=== PATIENT | male | born 1970 | race African-American/Black ===

== ENCOUNTER 2019-05-06 16:21 | Emergency (ER) | payer MEDICARE, MEDICAID ==
[~2019-05-06] VITALS: Ht 180.3 cm; Wt 114.3 kg
[2019-05-06] MEDS ORDERED: HYDROCODONE/APAP 5/325MG 1 EACH TABLET PO ONE (18:00)
[2019-05-06] MEDS ORDERED: ACETAMINOPHEN ES 500 MG TABLET ONE (18:18)
--- NOTE | 2019-05-06 18:22 | NUR ---
CALLED DIETARY FOR FOOD TRAY
[2019-05-06] MEDS ORDERED: ACETAMINOPHEN ES 500 MG TABLET PO ONE (18:30)
--- NOTE | 2019-05-06 19:31 | NUR ---
CALLED FOR BLS TRANSPORT, ETA [phone] MINS (APPROX 2029), TRIP #[id number]
[2019-05-06 21:03] VITALS: BP 133/81
== END 2019-05-06 21:03 | disposition home or self-care (01) ==
LOC: ER 16:35
DX: M17.12 Unilateral primary osteoarthritis, left knee (principal); M23.42 Loose body in knee, left knee; I11.0 Hypertensive heart disease with heart failure; I50.9 Heart failure, unspecified; E11.9 Type 2 diabetes mellitus without complications; E66.9 Obesity, unspecified; Z98.890 Other specified postprocedural states; Z95.0 Presence of cardiac pacemaker; Z86.73 Personal history of transient ischemic attack (TIA), and cerebral infarction without residual deficits
CPT/HCPCS: 73564-TC

== ENCOUNTER 2019-05-26 21:27 | Emergency (ER) | payer MEDICARE, MEDICAID ==
[~2019-05-26] VITALS: Ht 180.3 cm; Wt 114.3 kg
[2019-05-26] MEDS ORDERED: ACETAMINOPHEN ES 500 MG TABLET ONE (23:23)
[2019-05-26] MEDS ORDERED: ACETAMINOPHEN ES 500 MG TABLET PO ONE (23:30)
--- NOTE | 2019-05-26 23:30 | NUR ---
[facility] ETA 0100 [facility] [id number]
[2019-05-26 23:40] VITALS: BP 122/72
== END 2019-05-27 01:20 | disposition home or self-care (01) ==
LOC: ER 21:32
DX: M17.12 Unilateral primary osteoarthritis, left knee (principal); G89.29 Other chronic pain; M23.42 Loose body in knee, left knee; I11.0 Hypertensive heart disease with heart failure; I50.9 Heart failure, unspecified; E11.9 Type 2 diabetes mellitus without complications; Z95.0 Presence of cardiac pacemaker; Z86.73 Personal history of transient ischemic attack (TIA), and cerebral infarction without residual deficits

== ENCOUNTER 2020-07-09 07:55 | Emergency (ER) | payer BC, MEDICAID ==
[~2020-07-09] VITALS: Ht 180.3 cm; Wt 158.8 kg
--- NOTE | 2020-07-09 08:05 | NUR ---
PT SENT BY DR FARAH FOR CT ANGIOGRAM. PT DENIES ANY MEDICAL COMPLAINTS THIS TIME. PT AAOX4, RESPIRATIONS EVEN AND UNLABORED ON RA W/ NAD NOTED. PT CONNECTED TO THE INSPECTOR AND ADJUSTER [employer] HEAD AND POX.
--- NOTE | 2020-07-09 08:07 | NUR ---
paged dr feng. awaiting his call back
--- NOTE | 2020-07-09 08:17 | NUR ---
EKG AT BEDSIDE
--- NOTE | 2020-07-09 08:17 | NUR ---
XRAY AT BEDSIDE
--- NOTE | 2020-07-09 08:20 | NUR ---
[facility] CLINICAL NURSE SPECIALIST AT BEDSIDE FOR BLOOD DRAW
[2020-07-09 08:50] LABS: BASOPHILS # (AUTO) 0.1 /CMM (0.0-0.2); BASOPHILS % (AUTO) 1.2 % (0.0-2.0); EOSINOPHILS % (AUTO) 2.9 % (0.0-6.0); HEMATOCRIT 43 % (39-51); HEMOGLOBIN 13.7 g/dL (13.5-17.5); LYMPHOCYTES # (AUTO) 1.2 /CMM (0.8-4.8); LYMPHOCYTES % (AUTO) 22.7 % (20.0-44.0); MEAN CORPUSCULAR HGB CONC 32 g/dl (31.0-36.0); MEAN CORPUSCULAR VOLUME 85 fL (80-96); MONOCYTES # (AUTO) 0.6 /CMM (0.1-1.30); MONOCYTES % (AUTO) 12.4 % (2.0-12.0); NEUTROPHILS # (AUTO) 3.2 /CMM (1.8-8.9); NEUTROPHILS % (AUTO) 60.8 % (43.0-81.0); PLATELET COUNT (AUTO) 204 /CMM (150-450); RED BLOOD CELL COUNT(AUTO) 5.01 MIL/uL (4.5-6.0); WHITE BLOOD COUNT (AUTO) 5.2 K/uL (4.3-11.0)
[2020-07-09 08:58] LABS: CALCIUM, SERUM 8.7 mg/dL (8.5-10.1); CARBON DIOXIDE 21 mmol/L (21-32); CHLORIDE 105 mmol/L (98-107); CREATININE 1.3 mg/dL (0.6-1.3); GLUCOSE 106 mg/dL (74-106); SODIUM SERUM 137 mmol/L (136-145); UREA NITROGEN, BLOOD 13 mg/dL (7-18)
[2020-07-09] MEDS ORDERED: CARV25TA PO (09:00)
[2020-07-09] MEDS ORDERED: DICL100G16 TP (09:00)
[2020-07-09] MEDS ORDERED: SACU1TAB4 PO (09:00)
[2020-07-09] MEDS ORDERED: LORA-259 PO (09:00)
[2020-07-09] MEDS ORDERED: TOPI50TA24 PO (09:00)
[2020-07-09] MEDS ORDERED: ACET-2605 PO (09:00)
[2020-07-09] MEDS ORDERED: SPIR25TA PO (09:00)
[2020-07-09] MEDS ORDERED: HYDR-4384 PO (09:00)
[2020-07-09] MEDS ORDERED: HYDR-4076 PO (09:00)
[2020-07-09] MEDS ORDERED: TRAM50TA2 PO (09:00)
[2020-07-09] MEDS ORDERED: METF-440 PO (09:00)
[2020-07-09] MEDS ORDERED: APIX5TAB PO (09:00)
[2020-07-09] MEDS ORDERED: ONDA8TAB6 PO (09:00)
[2020-07-09] MEDS ORDERED: ZOLP10TA2 PO (09:00)
--- NOTE | 2020-07-09 09:02 | NUR ---
STEW SLATER PT CAME FROM [facility] ADDRESS:[id number] [place] [id number] FARAH
--- NOTE | 2020-07-09 09:16 | NUR ---
COVID SWAB COLLECTED AND SENT TO LAB
--- NOTE | 2020-07-09 09:55 | NUR ---
CALL FROM ANTWON,HEAD OPERATOR, WOULD LIKE TO TRANSFER PATIENT AND HIS MD WILL TALK TO DR PIERRE
--- NOTE | 2020-07-09 10:22 | NUR ---
RAPID COVID TEST=NEGATIVE
--- NOTE | 2020-07-09 10:24 | NUR ---
PAGED DR FARAH FOR A DR TO DR SPEARS
--- NOTE | 2020-07-09 10:49 | NUR ---
DR FARAH'S DIRECT LINE [phone]
--- NOTE | 2020-07-09 11:28 | NUR ---
CALL BACK FROM LISA,SHOES SALESPERSON,GOING TO [email or web address],ACCEPTED BY DR FARAH, REPORT TO BRADY SANTOS AT [phone]
--- NOTE | 2020-07-09 11:34 | NUR ---
PIERCE W/ BRADY, NURSING GREETER GUEST SERVICES FROM [facility], NURSE FOR THE PT AND BED WONT BE AVAILABLE UNTIL 1230. THEY WILL CALL BACK
--- NOTE | 2020-07-09 11:39 | NUR ---
[facility] ETA [phone]
--- NOTE | 2020-07-09 12:09 | NUR ---
INFORMED THAT HE IS GOING TO [facility] [place]
--- NOTE | 2020-07-09 13:08 | NUR ---
ATTEMPTED TO GIVE REPORT, NO ANSWER
--- NOTE | 2020-07-09 13:37 | NUR ---
ATTEMPTED TO GIVE REPORT TO SOCAL PAULINA, NO ANSWER
--- NOTE | 2020-07-09 13:53 | NUR ---
REPORT GIVEN TO DANIELLE HORN FOR MAGDA. ROOM TO BE DETERMINED UPON PT'S ARRIVAL
[2020-07-09 15:07] VITALS: BP 140/87
--- NOTE | 2020-07-09 15:09 | NUR ---
patient picked up by private ambulance going to [facility] in no distress.
== END 2020-07-09 15:09 | disposition short-term general hospital (02) ==
LOC: ER 08:05
DX: I42.9 Cardiomyopathy, unspecified (principal); I11.0 Hypertensive heart disease with heart failure; I50.9 Heart failure, unspecified; E11.9 Type 2 diabetes mellitus without complications; Z95.810 Presence of automatic (implantable) cardiac defibrillator; Z88.6 Allergy status to analgesic agent; Z79.01 Long term (current) use of anticoagulants; Z79.84 Long term (current) use of oral hypoglycemic drugs; Z79.899 Other long term (current) drug therapy; Z20.828 Contact with and (suspected) exposure to other viral communicable diseases
CPT/HCPCS: 36415; 71045-TC; 80048-TC; 84484-TC; 85025-TC; C9803-CS

== ENCOUNTER 2020-12-19 22:22 | Inpatient (IN) | payer BC, OTHER ==
[~2020-12-19] VITALS: Ht 180.3 cm; Wt 168.3 kg
[~2020-12-19 22:22] MED LIST: ACET-2605 PO; APIX5TAB PO; CARV25TA PO; DICL100G16 TP; HYDR-4076 PO; HYDR-4384 PO; LORA-259 PO; METF-440 PO; ONDA8TAB6 PO; SACU1TAB4 PO; SPIR25TA PO; TOPI50TA24 PO; TRAM50TA2 PO; ZOLP10TA2 PO
--- NOTE | 2020-12-19 22:31 | NUR ---
PT AAOX4. BIB FROM [facility]. PT C/O GENERALIZED WEAKNESS, SOB, AND MIDSTERNAL CP. PT STATING "IT FEELS LIKE IM RETAINING FLUID IN MY LUNGS" PT PLACED ON EARLY CHILDHOOD COORDINATOR AND PULSE OX. VSS. AWAITING FOR MD COLES AND ORDERS.
[2020-12-19] MEDS ORDERED: NITROGLYCERIN PACKET 1 GM PACKET TD ONE (23:00)
[2020-12-19] MEDS ORDERED: ASPIRIN 81 MG TAB.CHEW PO ONE (23:00)
[2020-12-19] MEDS ORDERED: NITROGLYCERIN PACKET 1 GM PACKET ONE (23:02)
[2020-12-19] MEDS ORDERED: ASPIRIN 81 MG TAB.CHEW ONE (23:02)
--- NOTE | 2020-12-19 23:22 | NUR ---
KITID SWABBED, SENT TO LAB.
[2020-12-19 23:31] LABS: BASOPHILS # (AUTO) 0.1 /CMM (0.0-0.2); BASOPHILS % (AUTO) 1.2 % (0.0-2.0); EOSINOPHILS % (AUTO) 3.2 % (0.0-6.0); HEMATOCRIT 40 % (39-51); HEMOGLOBIN 13.2 g/dL (13.5-17.5); LYMPHOCYTES # (AUTO) 1.4 /CMM (0.8-4.8); LYMPHOCYTES % (AUTO) 22.6 % (20.0-44.0); MEAN CORPUSCULAR HGB CONC 33 g/dl (31.0-36.0); MEAN CORPUSCULAR VOLUME 84 fL (80-96); MONOCYTES # (AUTO) 0.6 /CMM (0.1-1.30); MONOCYTES % (AUTO) 9.9 % (2.0-12.0); NEUTROPHILS # (AUTO) 3.9 /CMM (1.8-8.9); NEUTROPHILS % (AUTO) 63.1 % (43.0-81.0); PLATELET COUNT (AUTO) 212 /CMM (150-450); WHITE BLOOD COUNT (AUTO) 6.1 K/uL (4.3-11.0)
[2020-12-20] MEDS ORDERED: MELA3TAB41 PO (00:06)
[2020-12-20] MEDS ORDERED: FURO40TA5 PO (00:06)
[2020-12-20] MEDS ORDERED: AMIO200T5 PO (00:06)
[2020-12-20] MEDS ORDERED: ATOR10TA PO (00:06)
[2020-12-20 00:10] LABS: CALCIUM, SERUM 8.9 mg/dL (8.5-10.1); CARBON DIOXIDE 25 mmol/L (21-32); CHLORIDE 103 mmol/L (98-107); CREATININE 1.4 mg/dL (0.6-1.3); GLUCOSE 194 mg/dL (74-106); POTASSIUM 3.4 mmol/L (3.5-5.1); SODIUM SERUM 139 mmol/L (136-145); UREA NITROGEN, BLOOD 11 mg/dL (7-18)
[2020-12-20 00:23] LABS: ALANINE AMINOTRANSFERASE 33 U/L (12-78); ALBUMIN 3.6 g/dL (3.4-5.0); ALKALINE PHOSPHATASE 78 U/L (46-116); ASPARTATE AMINOTRANSFERASE 17 U/L (15-37); B-TYPE NATRIURETIC PEPTIDE 18 PG/ML (0-125); BILIRUBIN,DIRECT 0.1 mg/dL (0.0-0.2); BILIRUBIN,TOTAL 0.5 mg/dL (0.2-1.0); TOTAL PROTEIN, SERUM 6.9 g/dL (6.4-8.2)
--- NOTE | 2020-12-20 01:51 | NUR ---
PT RESTING COMFORTABLY. VSS.
--- NOTE | 2020-12-20 04:28 | NUR ---
PT IN BED, AWAKE, VSS
--- NOTE | 2020-12-20 07:11 | NUR ---
PT ASLEEP IN BED, VSS.
--- NOTE | 2020-12-20 09:00 | NUR ---
PT EATING BREAKFAST. DENIES ANY DISCOMFORT AT THIS TIME. WILL CONT TO MONITOR.
--- NOTE | 2020-12-20 11:10 | NUR ---
PT SITTING UP. DENIES CP, SOB, DIZZINESS, N/V AT THIS TIME. WILL CONT TO MONITOR.
--- NOTE | 2020-12-20 11:22 | NUR ---
BED 115
--- NOTE | 2020-12-20 11:35 | NUR ---
REPORT GIVEN TO DANIELLE MARTINES FOR MAGDA.
--- NOTE | 2020-12-20 11:55 | NUR ---
PATIENT RECIEVED FROM ER IN STABLE CONDITION BROUGHT IN WITH [facility]. REPORT RECIEVED FROM JASMINE. SKIN INTACT. VITALS WITHIN NORMAL LIMITS. RIGHT HAND IV 18 AKIN INTACT AND PATENT. WILL CONTINUE TO MONITOR AND PROVIDE CARE THROUGHOUT SHIFT.
--- NOTE | 2020-12-20 12:34 | NUR ---
left message to re; adm orders waiting for returning call back
--- NOTE | 2020-12-20 13:00 | NUR ---
is attending physician ,called and stated that will be calling in at 1400
[2020-12-20] MEDS: PANTOPRAZOLE 40 MG TABLET.DR PO SCH (14:55)
[2020-12-20] MEDS ORDERED: ENTRESTO PO SCH (17:00)
[2020-12-20] MEDS ORDERED: LORAZEPAM 1 MG TABLET PO PRN (17:00)
[2020-12-20] MEDS ORDERED: HOME MED MISCELLANEOUS XX SCH (17:00)
[2020-12-20] MEDS ORDERED: HYDROCODONE/APAP 5/325MG TABLET PO PRN (17:00)
[2020-12-20] MEDS ORDERED: ONDANSETRON 4 MG TAB.RAPDIS PO PRN (17:00)
[2020-12-20] MEDS ORDERED: TRAMADOL HCL 50 MG TABLET PO PRN (17:00)
[2020-12-20] MEDS: METFORMIN 500 MG TABLET PO SCH (17:41)
[2020-12-20] MEDS: APIXABAN 5 MG TABLET PO SCH (17:45)
--- NOTE | 2020-12-20 19:01 | NUR ---
RN CLOSING NOTE PATIENT IN BED WITH NO COMPLAINTS OF PAIN RESTING IN SEMI-FOWLERS POSITION. PATIENT ON ROOM AIR WITH COMPLAINTS OF SOB OR CHEST PAIN AT THE MOMENT. IV ACCESS MAINTAINED INTACT, SECURED AND FLUSHING WELL. SAFETY MEASURES IMPLEMENTED, BED LOCKED IN LOWEST POSITION, SIDE RAILS UP, CALL LIGHT WITHIN REACH. WILL ENDORSE CONTINUATION OF CARE TO UPCOMING SHIFT.
[2020-12-20 20:00] VITALS: BP 113/69
[2020-12-20] MEDS: CARVEDILOL 12.5 MG TABLET PO SCH (21:24)
[2020-12-20] MEDS ORDERED: TOPIRAMATE 25 MG TABLET PO SCH (22:00)
[2020-12-20] MEDS ORDERED: ATORVASTATIN 10 MG TABLET PO SCH (22:00)
[2020-12-20] MEDS ORDERED: ZOLPIDEM TARTRATE 10 MG TABLET PO PRN (22:00)
[2020-12-20] MEDS ORDERED: ACETAMINOPHEN ES 500 MG TABLET PO PRN (22:00)
[2020-12-21] VITALS: BP 116/70
[2020-12-21 04:00] VITALS: BP 119/78
--- NOTE | 2020-12-21 07:25 | NUR ---
RN OPENING NOTE PATIENT IN BED WITH NO COMPLAINTS OF PAIN RESTING IN SEMI-FOWLERS POSITION. PATIENT ON ROOM AIR WITH COMPLAINTS OF SOB OR CHEST PAIN AT THE MOMENT. IV ACCESS MAINTAINED INTACT, SECURED AND FLUSHING WELL. SAFETY MEASURES IMPLEMENTED, BED LOCKED IN LOWEST POSITION, SIDE RAILS UP, CALL LIGHT WITHIN REACH. WILL CONTINUE TO MONITOR AND PROVIDE CARE THROUGHOUT SHIFT.
[2020-12-21] MEDS ORDERED: PANTOPRAZOLE 40 MG TABLET.DR PO SCH (07:30)
[2020-12-21 08:00] VITALS: BP 127/78
[2020-12-21] MEDS ORDERED: LOSARTAN POTASSIUM 50 MG TABLET PO SCH (09:00)
[2020-12-21] MEDS ORDERED: AMIODARONE HCL 200 MG TABLET PO SCH (09:00)
[2020-12-21] MEDS ORDERED: SPIRONOLACTONE 25 MG TABLET PO SCH (09:00)
[2020-12-21] MEDS ORDERED: FUROSEMIDE 40 MG TABLET PO SCH (09:00)
[2020-12-21] MEDS: PANTOPRAZOLE 40 MG TABLET.DR PO SCH (09:11)
[2020-12-21] MEDS: METFORMIN 500 MG TABLET PO SCH ×2 (09:18→16:42)
[2020-12-21] MEDS: CARVEDILOL 12.5 MG TABLET PO SCH ×2 (09:19→16:42)
[2020-12-21] MEDS: APIXABAN 5 MG TABLET PO SCH ×2 (09:29→16:43)
[2020-12-21 12:00] VITALS: BP 122/73
[2020-12-21 16:00] VITALS: BP 113/60
--- NOTE | 2020-12-21 18:47 | NUR ---
RN CLOSING NOTE PATIENT IN BED WITH NO COMPLAINTS OF PAIN RESTING IN SEMI-FOWLERS POSITION. PATIENT ON ROOM AIR WITH COMPLAINTS OF SOB OR CHEST PAIN AT THE MOMENT. IV ACCESS MAINTAINED INTACT, SECURED AND FLUSHING WELL. SAFETY MEASURES IMPLEMENTED, BED LOCKED IN LOWEST POSITION, SIDE RAILS UP, CALL LIGHT WITHIN REACH. DISCHARGE PAPERWORK READY AND AVAILABLE FOR TRANSPORT. CURRENTLY AWAITING AMBULANCE FOR PICKUP WITH ETA OF 8:00 PM. WILL ENDORSE CONTINUATION OF CARE TO UPCOMING SHIFT.
[2020-12-21 20:00] VITALS: BP 119/79
--- NOTE | 2020-12-21 21:15 | NUR ---
TELE-1/HIGHWAY MAINTENANCE SUPERVISOR PT IV DC'D CATH TIP INTACT. SITE BENIGN. REPORT TO TRANSPORT TEAM. PT OFF THE FLOOR.
== END 2020-12-21 21:20 | disposition home or self-care (01) | DRG 313 ==
LOC: ER 22:23 → TRANSITION 12-20 02:21 → TELE1 12-20 12:15
PROVIDERS: ADMIT Internal Medicine; ATTEND Internal Medicine
DX: R07.89 Other chest pain (principal); I69.354 Hemiplegia and hemiparesis following cerebral infarction affecting left non-dominant side; I11.0 Hypertensive heart disease with heart failure; I50.9 Heart failure, unspecified; Z95.810 Presence of automatic (implantable) cardiac defibrillator; E11.9 Type 2 diabetes mellitus without complications; Z88.5 Allergy status to narcotic agent; Z79.84 Long term (current) use of oral hypoglycemic drugs; Z79.899 Other long term (current) drug therapy; I48.0 Paroxysmal atrial fibrillation; G40.909 Epilepsy, unspecified, not intractable, without status epilepticus; K27.9 Peptic ulcer, site unspecified, unspecified as acute or chronic, without hemorrhage or perforation; Z91.14 Patient's other noncompliance with medication regimen; I25.2 Old myocardial infarction; E78.00 Pure hypercholesterolemia, unspecified; Z87.891 Personal history of nicotine dependence; Z79.01 Long term (current) use of anticoagulants; I25.5 Ischemic cardiomyopathy
CPT/HCPCS: 36415; 71045-TC; 80048-TC; 80076-TC; 83880; 84484-TC; 85025-TC; 87081-TC; 93307-TC; C9803; G0378; U0003

== ENCOUNTER 2025-03-07 10:41 | Emergency (ER) | payer MEDICARE, OTHER ==
[~2025-03-07] VITALS: Ht 180.3 cm; Wt 176.9 kg
[~2025-03-07 10:41] MED LIST changes: +AMIO200T5 PO; +ATOR10TA PO; -CARV25TA PO; -DICL100G16 TP; +FURO40TA5 PO; -HYDR-4076 PO; +MELA3TAB41 PO
[2025-03-07 11:28] LABS: EOSINOPHILS # (AUTO) 0.1 K/uL (0.0-0.7); EOSINOPHILS % (AUTO) 2.5 % (0.0-6.0); HEMATOCRIT 44 % (39-51); HEMOGLOBIN 14.4 g/dL (13.5-17.5); LYMPHOCYTES % (AUTO) 21.5 % (20.0-44.0); MEAN CORPUSCULAR HEMOGLOBIN 27 PG (26.0-33.0); MEAN CORPUSCULAR HGB CONC 33 g/dl (31.0-36.0); MEAN CORPUSCULAR VOLUME 82 fL (80-96); MONOCYTES # (AUTO) 0.5 K/uL (0.1-1.30); MONOCYTES % (AUTO) 11.5 % (2.0-12.0); NEUTROPHILS % (AUTO) 63.5 % (43.0-81.0); PLATELET COUNT (AUTO) 211 K/uL (150-450); RED BLOOD CELL COUNT(AUTO) 5.35 MIL/uL (4.5-6.0); RED CELL DISTRIBUTION WIDTH 15.5 % (11.5-15.0); WHITE BLOOD COUNT (AUTO) 4.7 K/uL (4.3-11.0)
[2025-03-07 11:34] LABS: CALCIUM, SERUM 8.8 mg/dL (8.5-10.1); CREATININE 1.4 mg/dL (0.6-1.3); POTASSIUM 4.1 mmol/L (3.5-5.1)
[2025-03-07 11:40] LABS: ALBUMIN 3.4 g/dL (3.4-5.0); BILIRUBIN,DIRECT 0.1 mg/dL (0.0-0.2); BILIRUBIN,TOTAL 0.7 mg/dL (0.2-1.0); TOTAL PROTEIN, SERUM 7.1 g/dL (6.4-8.2)
[2025-03-07 12:06] LABS: APPEARANCE,URINE CLEAR (CLEAR); BILIRUBIN,URINE Negative (NEGATIVE); BLOOD, URINE Trace-intact Ery/uL (NEGATIVE); COLOR,URINE YELLOW (YELLOW); KETONES,URINE Negative (NEGATIVE); LEUKOCYTE ESTERASE ,URINE Negative (NEGATIVE); NITRITE, URINE NEGATIVE (NEGATIVE); PROTEIN,URINE Negative (NEGATIVE); UGLUCOSE >=1000 mg/dL (NEGATIVE)
[2025-03-07 12:21] LABS: ADD URINE CULTURE NO; BACTERIA,URINE Few /HPF (None Seen); SQUAMOUS EPITHELIAL CELL,UR Few /HPF (None Seen); WBC,URINE 0-2 /HPF (0-3)
[2025-03-07] MEDS ORDERED: SORBITOL SOLUTION 70% 30 ML SOLUTION ONE (12:51)
[2025-03-07] MEDS: SORBITOL SOLUTION 70% 30 ML SOLUTION PO ONE (12:51)
[2025-03-07 21:52] VITALS: BP 134/80; TEMP 98.6; O2SAT 97
== END 2025-03-07 21:52 ==
LOC: ER 10:45
DX: K59.00 Constipation, unspecified (principal); N50.819 Testicular pain, unspecified; I10 Essential (primary) hypertension; E11.9 Type 2 diabetes mellitus without complications; E66.01 Morbid (severe) obesity due to excess calories; E78.5 Hyperlipidemia, unspecified; E86.0 Dehydration; Z79.01 Long term (current) use of anticoagulants; Z79.84 Long term (current) use of oral hypoglycemic drugs; Z79.899 Other long term (current) drug therapy; Z88.5 Allergy status to narcotic agent; Z68.43 Body mass index [BMI] 50.0-59.9, adult; Z95.0 Presence of cardiac pacemaker
CPT/HCPCS: 36415; 76870-TC; 80048-TC; 80076-TC; 81001; 83690-TC; 85025-TC

== ENCOUNTER 2025-06-15 11:25 | Emergency (ER) | payer MEDICARE, OTHER ==
[~2025-06-15] VITALS: Ht 180.3 cm; Wt 154.2 kg
[2025-06-15 11:34] VITALS: TEMP 97.9
[2025-06-15] MEDS ORDERED: ACETAMINOPHEN 325 MG TABLET ONE (13:20)
[2025-06-15] MEDS: ACETAMINOPHEN 325 MG TABLET PO ONE (13:23)
[2025-06-15 15:59] VITALS: BP 133/90; O2SAT 93
== END 2025-06-15 15:50 | disposition home or self-care (01) ==
LOC: ER 11:29
DX: M25.572 Pain in left ankle and joints of left foot (principal); M79.605 Pain in left leg; M79.672 Pain in left foot; E11.9 Type 2 diabetes mellitus without complications; I10 Essential (primary) hypertension; Z79.01 Long term (current) use of anticoagulants; Z79.84 Long term (current) use of oral hypoglycemic drugs; Z79.899 Other long term (current) drug therapy; Z88.0 Allergy status to penicillin; Z88.5 Allergy status to narcotic agent; Z95.0 Presence of cardiac pacemaker; Z86.69 Personal history of other diseases of the nervous system and sense organs; Z87.39 Personal history of other diseases of the musculoskeletal system and connective tissue; Z20.822 Contact with and (suspected) exposure to COVID-19
CPT/HCPCS: 73610-TC; 73630-TC; 93971-TC